=== PATIENT | female | born 1960 ===

== ENCOUNTER 2024-05-18 04:06 | Day surgery (SDC) | payer OTHER ==
[2024-05-15 16:18] VITALS: BMI 36.1
[2024-05-18] MEDS ORDERED: LIDOCAINE HCL 1%, 10 MG/ML (20ML VIAL) ONE (09:38)
[2024-05-18] MEDS ORDERED: PROPOFOL 20 ML ONE (11:01)
[2024-05-18] MEDS ORDERED: MIDAZOLAM HCL 2 MG/2 ML SINGLE DOSE VIAL ONE (11:01)
[2024-05-18] MEDS: LIDOCAINE HCL 1%, 10 MG/ML (50 mL VIAL) INF ONE ×2 (11:47)
[2024-05-18] MEDS ORDERED: ONDANSETRON 4 MG/2 ML VIAL ONE (12:20)
[2024-05-18 13:13] VITALS: RESP 18
[2024-05-18] MEDS ORDERED: oxyCODONE HCL 5 MG TABLET PO PRN (13:36)
[2024-05-18] MEDS ORDERED: ONDANSETRON 4 MG/2 ML VIAL IVPUSH PRN (13:36)
[2024-05-18 15:24] VITALS: BP 126/83; PULSE 64; TEMP 97.6
== END 2024-05-18 14:40 | disposition home or self-care (01) ==
LOC: JASU-SURG 04:06
PROVIDERS: ATTEND Surgery
PROC: 0HBT0ZX Excision of Right Breast, Open Approach, Diagnostic (ICD-10-PCS; 2024-05-18)
PROC: BH40ZZZ Ultrasonography of Right Breast (ICD-10-PCS; principal; 2024-05-18 09:30)
DX: D24.1 Benign neoplasm of right breast (principal); N60.11 Diffuse cystic mastopathy of right breast; N60.31 Fibrosclerosis of right breast; N60.81 Other benign mammary dysplasias of right breast; N64.89 Other specified disorders of breast
CPT/HCPCS: 19281; 76098-TC-FY; 76642-TC-RT; 88307-TC; 94760; A4648